=== PATIENT | male | born 1995 | race Caucasian/White ===

== ENCOUNTER 2016-07-26 22:15 | Emergency (ER) | payer MEDICAID ==
[2016-07-26] MEDS ORDERED: ceFAZolin 1 GM VIAL IM STA (22:36)
[2016-07-26] MEDS ORDERED: ceFAZolin 1 GM VIAL ONE (22:38)
[2016-07-26] MEDS ORDERED: WATER FOR INJECTION,STERILE 10 ML ONE (22:40)
[2016-07-26] MEDS ORDERED: TETANUS/DIPHTHERIA/PERTUSSIS 0.5 ML SYRINGE IM ONE ×2 (23:07→23:08)
== END 2016-07-26 23:17 | disposition home or self-care (01) ==
DX: L03.113 Cellulitis of right upper limb (principal); L40.9 Psoriasis, unspecified; R03.0 Elevated blood-pressure reading, without diagnosis of hypertension; Z23 Encounter for immunization

== ENCOUNTER 2017-03-07 10:40 | Emergency (ER) | payer MEDICAID ==
[2017-03-07 12:07] VITALS: BP 117/69
[2017-03-07] MEDS ORDERED: DEXAMETHASONE 10 MG/ML VIAL PO STA (12:47)
--- NOTE | 2017-03-07 12:48 | ED Physician Documentation ---
PD HPI URI - Stated complaint Stated Complaint: COLD LIKE SYMPTOMS - Chief complaint Chief Complaint: Resp - History obtained from History obtained from: Patient - History of Present Illness Timing - onset: How many days ago (5) Timing duration: Days (5) Timing details: Gradual onset Pain level max: 3 Pain level now: 2 Associated symptoms: Nasal congestion, Rhinorrhea, Sinus pain, Sore throat (mild ), Dry cough (mild), Other (states nasal mucus had some blood in it today.). No : Fever, Chills, Sweats, Ear pain, Swollen nodes, Productive cough Contributing factors: Sick contact (daughter sick with same) Improves by: Rest Worsened by: Activity, Breathing Recently seen: Not recently seen - Additional information Additional information: Patient is a 22-year-old male who presents to the emergency department with nasal congestion and dry cough for the past several days. States the nasal mucus has turned bloody recently. Small amount of bleeding. Had his tonsils removed last year and is concerned that he may have a recurrent tonsillar abscess. No difficulty swallowing. Review of Systems Ten Systems: 10 systems reviewed and negative Constitutional: denies: Fever, Chills Cardiac: denies: Chest pain / pressure Respiratory: denies: Dyspnea, Cough GI: denies: Abdominal Pain, Nausea, Vomiting, Diarrhea Skin: denies: Rash Musculoskeletal: denies: Neck pain, Back pain Neurologic: denies: Focal weakness, Numbness, Headache PD PAST MEDICAL HISTORY - Past Medical History Past Medical History: No - Past Surgical History Past Surgical History: No - Present Medications Home Medications: Ambulatory Orders Medication Instructions Recorded Confirmed Cetirizine HCl/Pseudoephedrine 1 each PO BID PRN #30 tab.er.12h 03/07/17 [Zyrtec-D Tablet] - Allergies Allergies/Adverse Reactions: Allergies Allergy/AdvReac Type Severity Reaction Status Date / Time No Known Drug Allergies Allergy Verified 03/07/17 10:51 - Social History Does the pt smoke?: No Smoking Status: Never smoker Does the pt drink ETOH?: No Does the pt have substance abuse?: No - Immunizations Immunizations are current?: Yes - POLST Patient has POLST: No PD ED PE NORMAL - Vitals Vital signs reviewed: Yes - General General: Alert and oriented X 3, No acute distress, Well developed/nourished - HEENT HEENT: PERRL, EOMI, Ears normal, Moist mucous membranes, Pharynx benign - Neck Neck: Supple, no meningeal sign, No adenopathy - Cardiac Cardiac: RRR, Strong equal pulses - Respiratory Respiratory: No respiratory distress, Clear bilaterally - Abdomen Abdomen: Soft, Non tender, Non distended - Derm Derm: Warm and dry, No rash - Neuro Neuro: Alert and oriented X 3 - Psych Psych: Normal mood, Normal affect Results - Vitals Vitals: Vital Signs - 24 hr 03/07/17 03/07/17 10:49 12:07 Temperature 36.3 C L 36.5 C Heart Rate 84 73 Respiratory 16 18 Rate Blood Pressure 138/88 H 117/69 O2 Saturation 98 97 Oxygen O2 Source Room air PD MEDICAL DECISION MAKING - ED course Complexity details: considered differential, d/w patient ED course: Patient is a 22-year-old male who presents to the emergency department what appears to be a viral upper respiratory infection. No sinus tenderness on examination. No fevers. No evidence of bacterial infection. Pharynx is benign. No lymphadenopathy. We will continue supportive care and follow-up with his doctor. Patient counseled regarding signs and symptoms for which I believe and urgent re-evaluation would be necessary. Patient with good understanding of and agreement to plan and is comfortable going home at this time This document was made in part using voice recognition software. While efforts are made to proofread this document, sound alike and grammatical errors may occur. Departure - Departure Disposition: 01 Home, Self Care Clinical Impression: Viral URI Condition: Good Instructions: ED URI Viral Follow-Up: your,doctor in 1 week [Other] Prescriptions: Cetirizine HCl/Pseudoephedrine [Zyrtec-D Tablet] 1 each PO BID PRN #30 tab.er.12h PRN Reason: Nasal Congestion Comments: Return if you worsen. This should improve over the next week or so.
[2017-03-07] MEDS ORDERED: DEXAMETHASONE 10 MG/ML VIAL ONE (12:59)
[2017-03-07] MEDS ORDERED: CHERRY SYRUP 10 ML UDC PO ONE (12:59)
== END 2017-03-07 12:57 | disposition home or self-care (01) ==
LOC: ED 10:40
DX: J06.9 Acute upper respiratory infection, unspecified (principal); B34.9 Viral infection, unspecified
CPT/HCPCS: 99283; A9270

== ENCOUNTER 2017-08-17 08:00 | Outpatient (CLI) | payer MEDICAID | END 2017-08-17 08:01 | disposition home or self-care (01) | LOC: LAB.R 08:00 | PROVIDERS: ATTEND Physician Assistant Medical | DX: Z00.00 Encounter for general adult medical examination without abnormal findings (principal); Z91.89 Other specified personal risk factors, not elsewhere classified | CPT/HCPCS: 87491; 87591 ==

== ENCOUNTER 2017-08-17 08:00 | Outpatient (CLI) | payer MEDICAID ==
[2017-08-18 08:55] LABS: HEPATITIS C ANTIBODY NON-REACTIVE (NON-REACTIVE)
[2017-08-18 14:42] LABS: HIV AG/AB 4TH GEN NON-REACTIVE (NON-REACTIVE)
== END 2017-08-17 08:01 | disposition home or self-care (01) ==
LOC: LAB.WCP 08:00
PROVIDERS: ATTEND Physician Assistant Medical
DX: Z00.00 Encounter for general adult medical examination without abnormal findings (principal); Z91.89 Other specified personal risk factors, not elsewhere classified
CPT/HCPCS: 36415; 81599; 86592; 86803; 87389; 87491; 87591

== ENCOUNTER 2017-11-15 08:00 | Outpatient (CLI) | payer MEDICAID ==
[2017-11-17 12:01] LABS: HSV 2 IGG TYPE SPECIFIC AB <0.90 index
== END 2017-11-15 08:01 | disposition home or self-care (01) ==
LOC: LAB.N 08:00
PROVIDERS: ATTEND Nurse Practitioner
DX: B00.1 Herpesviral vesicular dermatitis (principal)
CPT/HCPCS: 36415; 86695; 86696

== ENCOUNTER 2017-11-17 17:22 | Emergency (ER) | payer MEDICAID ==
[2017-11-17 17:38] VITALS: BP 140/87
[2017-11-17] MEDS ORDERED: HYDROcod/ACETAM 5/325 MG TABLET PO STA (18:14)
[2017-11-17] MEDS ORDERED: BUFFERED LIDOCAINE 10 ML SYRINGE SUBQ STA (18:14)
[2017-11-17] MEDS ORDERED: AMOX/CLAV 875 MG/125 MG TABLET PO STA (18:14)
--- NOTE | 2017-11-17 18:16 | ED Physician Documentation ---
PD HPI SKIN - Stated complaint Stated Complaint: LIP SWOLLEN - Chief complaint Chief Complaint: Wound - History obtained from History obtained from: Patient - History of Present Illness Timing - onset: Other (He has had several days of a painful swelling to the right upper lip, with some aches and chills as well. He saw his physician and was presumed to be herpetic I guess because they put him on meloxicam and valacyclovir without improvement.) Review of Systems Constitutional: reports: Chills, Fatigue. denies: Fever Nose: denies: Rhinorrhea / runny nose, Congestion Cardiac: denies: Palpitations PD PAST MEDICAL HISTORY - Past Surgical History Past Surgical History: No - Present Medications Home Medications: Ambulatory Orders Medication Instructions Recorded Confirmed Amox/Clav 875/125 [Augmentin] 1 each PO Q12H #14 tablet 11/17/17 HYDROcod/ACETAM 5/325 [[place] 5/325] 1 - 2 ea PO Q6H PRN #15 tablet 11/17/17 Meloxicam 7.5 mg PO 11/17/17 - Allergies Allergies/Adverse Reactions: Allergies Allergy/AdvReac Type Severity Reaction Status Date / Time No Known Drug Allergies Allergy Verified 11/17/17 17:38 - Social History Does the pt smoke?: No Smoking Status: Never smoker Does the pt drink ETOH?: No Does the pt have substance abuse?: No - Immunizations Immunizations are current?: Yes - POLST Patient has POLST: No PD ED PE NORMAL - Vitals Vital signs reviewed: Yes - General General: Alert and oriented X 3, No acute distress - HEENT HEENT: Other (He has a tender swollen upper lip on the right side with pointing consistent with an abscess.) - Neck Neck: Supple, no meningeal sign, No bony TTP - Neuro Neuro: Alert and oriented X 3, Normal speech Results - Vitals Vitals: Vital Signs - 24 hr 11/17/17 17:35 Temperature 37.5 C Heart Rate 88 Respiratory 16 Rate Blood Pressure 140/87 H O2 Saturation 98 Oxygen O2 Source Room air Procedures - Abscess I&D (location) Lip Preparation: Betadine, Lidocaine 1% (inf orbital nerve block) Incision: Incised with scalpel, Purulent drainage, Loculations broken, Packed ( with 1/4 inch packing), Culture obtained Other: Pt tolerated well, Dressing applied, Antibiotic prescribed PD MEDICAL DECISION MAKING - Sepsis Event Vital Signs: Vital Signs - 24 hr 11/17/17 17:35 Temperature 37.5 C Heart Rate 88 Respiratory 16 Rate Blood Pressure 140/87 H O2 Saturation 98 Oxygen O2 Source Room air Departure - Departure Disposition: 01 Home, Self Care Clinical Impression: Abscess Condition: Good Record reviewed to determine appropriate education?: Yes Instructions: ED Abscess IandD Prescriptions: Amox/Clav 875/125 [Augmentin] 1 each PO Q12H #14 tablet HYDROcod/ACETAM 5/325 [[place] 5/325] 1 - 2 ea PO Q6H PRN #15 tablet PRN Reason: Pain Comments: Take the packing out tomorrow, follow-up with your doctor on Tuesday for a wound check. We are performing a wound culture, the results should be done in 48-72 hours. If antibiotic change is necessary we will call you. Return if worse in the meantime, especially if you develop increased pain, fevers, cannot keep down the medication. Otherwise follow-up with your physician in approximately 2-3 days.
== END 2017-11-17 19:37 | disposition home or self-care (01) ==
LOC: ED 17:22
DX: K13.0 Diseases of lips (principal)
CPT/HCPCS: 10060; 87070; 87181; 87205; 99283; A9270

== ENCOUNTER 2018-08-28 22:27 | Outpatient (CLI) | payer MEDICAID ==
--- NOTE | 2018-08-28 23:49 | Ultrasound Report ---
Reason: TESTICULAR PAIN,LEFT Procedure Date: 08/28/2018 Accession Number: [id number] / [id number] Procedure: US - Testicle w/Doppler CPT Code: FULL RESULT: EXAM: SCROTAL ULTRASOUND EXAM DATE: 08/28/2018 11:00 PM. CLINICAL HISTORY: TESTICULAR PAIN,LEFT. COMPARISON: None. TECHNIQUE: Real-time scanning was performed with static images obtained. Color-flow images were utilized. FINDINGS: Right: Testis: 4.0 x 2.3 x 1.9 cm. Normal size and echotexture. No mass, calcification, or abnormal blood flow. Epididymis: 1.7 x 1.2 x 1.1 cm. Normal size and echotexture. No mass or abnormal blood flow. Hydrocele: Trace Varicocele: None. Left: Testis: 3.5 x 2.8 x 1.9 cm. Normal size and echotexture. No mass, calcification, or abnormal blood flow. Epididymis: 1.3 x 0.9 x 0.8 cm. Incidental 6 mm epididymal cyst. No solid lesion or abnormal blood flow. Hydrocele: Trace Varicocele: None. IMPRESSION: Incidental left epididymal cyst. No evidence of torsion or testicular lesion. RADIA
== END 2018-08-28 22:28 | disposition home or self-care (01) ==
LOC: DI 22:27
PROVIDERS: ATTEND Physician Assistant Medical
DX: N50.812 Left testicular pain (principal); N50.3 Cyst of epididymis
CPT/HCPCS: 76870; 93975

== ENCOUNTER 2019-08-28 21:21 | Emergency (ER) | payer MEDICAID ==
--- NOTE | 2019-08-28 21:40 | ED Physician Documentation ---
History of Present Illness - Stated complaint Stated Complaint: SWOLLEN RIGHT JAW/PX - Chief complaint Chief Complaint: Wound - Additonal information Additional information: This is a 24-year-old male with a history of past abscess who presents with swelling on his right cheek. Several days ago patient began developing a little bit of a red spot on his right cheek, he saw primary care provider who prescribed him Bactrim but despite taking the Bactrim it is continued to be swollen and painful. He feels the overal size of the swelling has been fairly stable over the last day but it is definitely not improving. No measured fever, he endorses chills. When he opens his mouth he does have increased pain on the cheek. He denies any pain with range of motion of his neck. He has been taking the Bactrim as prescribed. He denies any trauma to the area, this apparently began out of the blue. Review of Systems Constitutional: denies: Fever Cardiac: denies: Chest pain / pressure GI: denies: Vomiting Skin: reports: Rash Immunocompromised: denies: Immunocompromised PD PAST MEDICAL HISTORY - Past Medical History Past Medical History: No - Past Surgical History Past Surgical History: No - Present Medications Home Medications: Ambulatory Orders Medication Instructions Recorded Confirmed Amox/Clav 875/125 [Augmentin] 1 each PO Q12H #14 tablet 11/17/17 HYDROcod/ACETAM 5/325 [[place] 5/325] 1 - 2 ea PO Q6H PRN #15 tablet 11/17/17 Meloxicam 7.5 mg PO 11/17/17 Sulfamethox/Trimeth 800/160 1 each PO BID 2 Days #4 tablet 08/28/19 [Bactrim Ds 800/160] cephALEXin [Cephalexin] 500 mg PO QID 7 Days #28 tablet 08/28/19 - Allergies Allergies/Adverse Reactions: Allergies Allergy/AdvReac Type Severity Reaction Status Date / Time No Known Drug Allergies Allergy Verified 08/28/19 21:28 - Social History Does the pt smoke?: No Smoking Status: Never smoker Does the pt drink ETOH?: No Does the pt have substance abuse?: No - Immunizations Immunizations are current?: Yes - POLST Patient has POLST: No PD ED PE NORMAL - Vitals Vital signs reviewed: Yes - General General: Alert and oriented X 3, No acute distress - HEENT HEENT: Other (Over the right cheek there is a 3 cm x 3cm fluctuance and edema, and erythema. There is mild induration about 1 cm circumferentially around the area of fluctuance. There are no lesions in the internal mucosa, no open wounds on the external cheek. Patient has normal range of motion of his jaw without trismus, no tenderness of the neck, normal range of motion of the neck.) - Neck Neck: Supple, no meningeal sign - Cardiac Cardiac: RRR, No murmur - Respiratory Respiratory: Clear bilaterally - Abdomen Abdomen: Non distended, Other (There is a left inguinal hernia which is reducible, and without significant tenderness.) - Neuro Neuro: Alert and oriented X 3 - Psych Psych: Normal mood, Normal affect Results - Vitals Vitals: Vital Signs - 24 hr 08/28/19 08/28/19 21:24 23:37 Temperature 36.9 C 36.7 C Heart Rate 87 86 Respiratory 16 16 Rate Blood Pressure 139/79 H 130/80 O2 Saturation 98 98 Oxygen O2 Source Room air Procedures - Abscess I&D (location) R cheek Preparation: Confirmed with ultrasound, Alcohol, Lidocaine 1%, With epi Incision: Incised with scalpel, Purulent drainage, Loculations broken Other: Pt tolerated well, Dressing applied, Antibiotic prescribed PD MEDICAL DECISION MAKING - ED course Complexity details: considered differential (Abscess, cellulitis, infected cyst) ED course: Patient is nontoxic on arrival, vital signs are unremarkable. He has a localized area of fluctuance over his cheek, with ultrasound there is a confirmed abscess pocket. After discussing with the patient the options for treatment including aspiration, incision and drainage, we elected to do an incision and drainage with a small incision, with the understanding that a small incision may increase the rate of recurrence, but It will have a better cos metic outcome for him. After the area was anesthestized a stab incision with an 11 blade was performed and there was fairly copious return of purulent drainage. Loculations were broken and all purulent drainage was expressed. Patient was given a dose of Ativan for the procedure as last time he had an incision and drain hinged he had significant distress/anxiety with the procedure. Today he tolerated the procedure quite well. I reviewed wound care, including warm compresses and bacitracin over the area, potential need for repeat incision and drainage, and prescribed him a course of Keflex to be added to week of Bactrim. He has no signs of more serious or deeper infection at this time, appears to have a localized abscess of his cheek. As a secondary issue part-way through the visit patient noted that he had a reducible left inguinal bulge for several weeks, he saw his primary care provider who referred him to a general surgeon for outpatient hernia repair. He has intermittent discomfort with the bulge, which is more prominent with straining. This is a reducible hernia with no signs of entrapment or incarceration today, I agree with the plan of his primary care provider for outp atient referral for general surgery. I did review the signs of incarceration and strangulation with the patient, I also reviewed avoiding heavy straining that would potentially worsen the hernia. Patient agrees with this plan and was discharged home in good condition. Departure - Departure Disposition: 01 Home, Self Care Clinical Impression: Abscess Condition: Good Instructions: ED Abscess IandD Follow-Up: Sebastián Baker PA-C [Primary Care Provider] - (With any residual symptoms) Prescriptions: cephALEXin [Cephalexin] 500 mg PO QID 7 Days #28 tablet Sulfamethox/Trimeth 800/160 [Bactrim Ds 800/160] 1 each PO BID 2 Days #4 tablet Comments: We have drained the abscess on your cheek. Please keep a thin layer of antibiotic ointment over the incision, and use warm compresses on it. You may apply gentle pressure to assist with any further drainage, but do not pick at the wound. If you are developing increasing swelling, fever, difficulty swallowing, difficulty breathing, or any other concerning symptoms, return to the emergency department. Please take the full 7-day course of both antibiotics: Bactrim (I am prescribing an additional 2 days on top of the 5 days of pills you have already) and Keflex. It is okay to use Tylenol and ibuprofen for pain, you may use 650 mg of Tylenol and 600 mg of ibuprofen every 6 hours as needed Discharge Date/Time: 08/28/19 23:37
[2019-08-28] MEDS ORDERED: LIDOCAINE 1%-EPI 1:100000 20 ML MDV SUBQ STA (21:41)
[2019-08-28] MEDS ORDERED: LORazepam 1 MG TABLET PO STA (23:00)
[2019-08-28] MEDS ORDERED: BACITRACIN ZINC OINT 1 PACKET TOP STA (23:31)
[2019-08-28 23:38] VITALS: BP 130/80
== END 2019-08-28 23:37 | disposition home or self-care (01) ==
LOC: ED 21:21
DX: L02.01 Cutaneous abscess of face (principal); K40.90 Unilateral inguinal hernia, without obstruction or gangrene, not specified as recurrent
CPT/HCPCS: 10060; 99283; 99284; A9270; J8499

== ENCOUNTER 2019-09-05 08:00 | Outpatient (CLI) | payer MEDICAID | END 2019-09-05 23:59 | disposition home or self-care (01) | LOC: LAB.R 08:00 | PROVIDERS: ATTEND Surgery | DX: Z22.322 Carrier or suspected carrier of Methicillin resistant Staphylococcus aureus (principal) | CPT/HCPCS: 87640 ==

== ENCOUNTER 2019-09-20 13:53 | Emergency (ER) | payer MEDICAID ==
[2019-09-20 14:04] VITALS: BP 116/71
--- NOTE | 2019-09-20 14:47 | ED Physician Documentation ---
PD HPI ABD PAIN - Stated complaint Stated Complaint: HERNIA PX - Chief complaint Chief Complaint: Abd Pain - History obtained from History obtained from: Patient - History of Present Illness Timing - onset: Other (Recent diagnosis of left inguinal hernia, continues to bother him more and more as time progresses. He is already seen a surgeon but has not been scheduled for surgery yet. Of note he also had a recent abscess on the right cheek and still has a lump there. It is not painful.) Review of Systems Constitutional: denies: Fever, Myalgias Nose: denies: Rhinorrhea / runny nose, Congestion Throat: denies: Sore throat Cardiac: denies: Chest pain / pressure, Palpitations PD PAST MEDICAL HISTORY - Past Surgical History Past Surgical History: No - Present Medications Home Medications: Ambulatory Orders Medication Instructions Recorded Confirmed Amox/Clav 875/125 [Augmentin] 1 each PO Q12H #14 tablet 11/17/17 HYDROcod/ACETAM 5/325 [[place] 5/325] 1 - 2 ea PO Q6H PRN #15 tablet 11/17/17 Meloxicam 7.5 mg PO 11/17/17 Sulfamethox/Trimeth 800/160 1 each PO BID 2 Days #4 tablet 08/28/19 [Bactrim Ds 800/160] cephALEXin [Cephalexin] 500 mg PO QID 7 Days #28 tablet 08/28/19 Hydrocodone/Acetaminophen 1 - 2 each PO Q6H PRN #14 tablet 09/20/19 [Hydrocodon-Acetaminophen 5-325] - Allergies Allergies/Adverse Reactions: Allergies Allergy/AdvReac Type Severity Reaction Status Date / Time No Known Drug Allergies Allergy Verified 09/20/19 14:01 - Social History Does the pt smoke?: No Smoking Status: Never smoker Does the pt drink ETOH?: No Does the pt have substance abuse?: No - Immunizations Immunizations are current?: Yes - POLST Patient has POLST: No PD ED PE NORMAL - Vitals Vital signs reviewed: Yes - General General: Alert and oriented X 3, No acute distress - HEENT HEENT: Other (small sebaceous cyst w/o infection) - Abdomen Abdomen: Non tender - Male Male : Other (He has an easily reducible small nontender left inguinal hernia) - Neuro Neuro: Alert and oriented X 3, Normal speech Results - Vitals Vitals: Vital Signs - 24 hr 09/20/19 14:01 Temperature 36.5 C Heart Rate 78 Respiratory 14 Rate Blood Pressure 116/71 O2 Saturation 98 Oxygen O2 Source Room air PD MEDICAL DECISION MAKING - ED course ED course: I sent an email to the surgeon that saw him, Dr. Sánchez to hopefully get him on the schedule sooner rather than later as elective surgeries reopen could also be incised at the same time. We discussed limitation in lifting etc. Departure - Departure Disposition: Home, Self Care Clinical Impression: Hernia Condition: Good Record reviewed to determine appropriate education?: Yes Instructions: ED Hernia Inguinal Prescriptions: Hydrocodone/Acetaminophen [Hydrocodon-Acetaminophen 5-325] 1 - 2 each PO Q6H PRN #14 tablet PRN Reason: pain Comments: I sent an email to your surgeon, who they can get you on the schedule soon, potentially may be take care of the cyst on your face as well. Return for new or worsening symptoms. Discharge Date/Time: 09/20/19 14:57
== END 2019-09-20 14:57 | disposition home or self-care (01) ==
LOC: ED 13:53
DX: K40.90 Unilateral inguinal hernia, without obstruction or gangrene, not specified as recurrent (principal); L72.3 Sebaceous cyst
CPT/HCPCS: 99282; 99283

== ENCOUNTER 2019-10-12 11:44 | Outpatient (CLI) | payer MEDICAID | END 2019-10-12 11:45 | disposition home or self-care (01) | LOC: LAB 11:44 | PROVIDERS: ATTEND Surgery | DX: Z01.812 Encounter for preprocedural laboratory examination (principal); K40.90 Unilateral inguinal hernia, without obstruction or gangrene, not specified as recurrent; Z20.828 Contact with and (suspected) exposure to other viral communicable diseases | CPT/HCPCS: 81599 ==

== ENCOUNTER 2019-10-16 08:24 | Day surgery (SDC) | payer MEDICAID ==
[2019-10-16] MEDS ORDERED: LACTATED RINGERS 1,000 ML IV ONE ×2 (08:35→12:11)
[2019-10-16] MEDS ORDERED: CLINDAMYCIN IV 900 MG/50 ML IV ONE (09:00)
--- NOTE | 2019-10-16 09:02 | ANESTHESIA ---
Pre-Anesthesia VS, & Labs - Diagnosis left inguinal hernia - Procedure open left inguinal hernia repair Vital Signs: Temp Pulse Resp BP Pulse Ox 36 C L 79 12 125/70 100 10/16/19 08:35 10/16/19 08:35 10/16/19 08:35 10/16/19 08:35 10/16/19 08:35 Height 5 ft 10 in Weight (kg) 73 kg Body Mass Index 22.6 - NPO >8 hours Home Medications and Allergies Active Medications Clindamycin Phosphate (Cleocin 900 Mg/50 Ml) 50 mls @ 50 mls/hr IV ONCE ONE Stop: 10/16/19 09:59 Allergies/Adverse Reactions: Allergies Allergy/AdvReac Type Severity Reaction Status Date / Time No Known Drug Allergies Allergy Verified 09/20/19 14:01 Anes History & Medical History - Anesthetic History Anesthesia Complications: reports: No previous complications, Other-see comment (not sure but reports that during his wisdom teeth removal, " had a little but of a seizure" but he is not sure. denies any other complications. and that was when he was 14. He denies any problems since then.) Family history of Anesthesia Complications: Denies Family history of Malignant Hyperthermia: Denies - Medical History Cardiovascular: reports: None Pulmonary: reports: None Gastrointestinal: reports: None, Other Urinary: reports: None Neuro: reports: None Musculoskeletal: reports: None Endocrine/Autoimmune: reports: None Blood Disorders: reports: None Skin: reports: Eczema, Psoriasis Smoking Status: Current every day smoker (3 cigarattes a day. on and off for a year or two) Psychosocial: reports: Anxiety - Surgical History Eyes Ears Nose Throat (EENT): Tonsil/Adenoidectomy, Other Exam General: Alert, Oriented x3, Cooperative, No acute distress Dental: WNL Mouth Openin Fingerbreadth Neck Mobility: Normal Mallampati classification: I Thyromental Distance: 4-6 cm Respiratory: Lungs clear, Normal breath sounds, No respiratory distress, No accessory muscle use Cardiovascular: Regular rate, Normal S1, Normal S2, No murmurs Abdomen: Normal bowel sounds, Soft, No tenderness, No hepatospenomegaly, No masses Extremities: No clubbing, No cyanosis, No edema, Normal pulses, No tenderness/swelling Neurological: Normal gait, Normal speech, Strength at 5/5 X4 ext, Normal tone, Sensation intact, Cranial nerves 3-12 NL, Reflexes 2+ Mental/Cognitive Status: Alert/Oriented X3, Normal for patient Cognitive Status: Within normal limits Plan Anesthesia Type: MAC Consent for Procedure(s) Verified and Reviewed: Yes Code Status: Attempt Resuscitation ASA classification: 2-Mild systemic disease Is this case an emergency?: No
[2019-10-16] MEDS ORDERED: BUPIVACAINE 0.25% PF 30 ML VIAL SUBQ ONE ×2 (10:16)
[2019-10-16] MEDS ORDERED: BUPIVACAINE 0.25% PF 30 ML VIAL ONE ×2 (10:20→10:53)
[2019-10-16] MEDS ORDERED: DEXAMETHASONE 4 MG/ML VIAL IVP ONE (10:36)
[2019-10-16] MEDS ORDERED: KETAMINE 500 MG/10 ML VIAL IVP ONE (10:36)
[2019-10-16] MEDS ORDERED: MIDAZOLAM 2 MG/2 ML VIAL IVP ONE (10:36)
[2019-10-16] MEDS ORDERED: PROPOFOL 200 MG/20 ML VIAL IVP ONE (10:36)
[2019-10-16] MEDS ORDERED: ONDANSETRON 4 MG/2 ML VIAL IVP ONE (10:36)
[2019-10-16] MEDS ORDERED: fentaNYL 100 MCG/2 ML VIAL IVP ONE (10:36)
[2019-10-16] MEDS ORDERED: PHENYLEPHRINE 10 MG/ML VIAL IV ONE (10:36)
[2019-10-16] MEDS ORDERED: LIDOCAINE 1% 50 ML MDV SUBQ ONE ×2 (11:08)
[2019-10-16] MEDS ORDERED: HYDROcod/ACETAM 5/325 MG TABLET ONE (13:27)
[2019-10-16 13:34] VITALS: BP 130/73
== END 2019-10-16 08:25 | disposition home or self-care (01) ==
LOC: SDS 08:24
PROVIDERS: ATTEND Surgery
DX: K40.90 Unilateral inguinal hernia, without obstruction or gangrene, not specified as recurrent (principal); F17.210 Nicotine dependence, cigarettes, uncomplicated
CPT/HCPCS: 49505; A9270; C1781; J7120

== ENCOUNTER 2020-01-24 13:56 | Emergency (ER) | payer MEDICAID ==
[2020-01-24 15:22] LABS: BASOPHILS # (AUTO) 0.1 10^3/uL (0.0-0.1); BASOPHILS % (AUTO) 0.7 %; EOSINOPHILS # (AUTO) 0.3 10^3/uL (0.0-0.7); HGB - HEMOGLOBIN 16.5 g/dL (14.0-18.0); LYMPHOCYTES # (AUTO) 1.6 10^3/uL (1.5-3.5); LYMPHOCYTES % (AUTO) 18.9 %; MEAN CORPUSCULAR HEMOGLOBIN 28.8 pg (27.0-31.0); MEAN CORPUSCULAR HGB CONC 34.6 g/dL (32.0-36.0); MEAN CORPUSCULAR VOLUME 83.4 fL (80.0-94.0); MEAN PLATELET VOLUME 10.5 fL (7.4-11.4); MONOCYTES # (AUTO) 0.6 10^3/uL (0.0-1.0); MONOCYTES % (AUTO) 7.6 %; NEUTROPHILS # (AUTO) 5.8 10^3/uL (1.5-6.6); NEUTROPHILS % (AUTO) 69.4 %; PLT - PLATELET COUNT 170 10^3/uL (130-450); RED BLOOD COUNT 5.72 10^6/uL (4.70-6.10); RED CELL DISTRIBUTION WIDTH 12.5 % (12.0-15.0); WHITE BLOOD COUNT 8.4 x10^3/uL (4.8-10.8)
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
[2020-01-24 15:32] LABS: CALCIUM 9.8 mg/dL (8.5-10.3); CREATININE 0.9 mg/dL (0.6-1.2)
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
[2020-01-24] MEDS ORDERED: IOVERSOL 320 100 ML VIAL IVP ONE (17:34)
[2020-01-24 17:55] VITALS: BP 137/67
== END 2020-01-24 17:54 | disposition home or self-care (01) ==
LOC: ED 13:56
DX: T71.193A Asphyxiation due to mechanical threat to breathing due to other causes, assault, initial encounter (principal); Y04.0XXA Assault by unarmed brawl or fight, initial encounter; Y93.83 Activity, rough housing and horseplay; F17.210 Nicotine dependence, cigarettes, uncomplicated
CPT/HCPCS: 36415; 70450; 70498; 80048; 85025; 99282; 99284

== ENCOUNTER 2020-07-20 18:32 | Outpatient (CLI) | payer MEDICAID ==
--- NOTE | 2020-07-21 09:17 | Ultrasound Report ---
PROCEDURE: Testicle INDICATIONS: ACUTE PELVIC PAIN, LEFT TESTICULAR PAIN TECHNIQUE: Real-time scanning was performed of the scrotum and testicles, with image documentation. Color and p ulse Doppler interrogation was performed of both testicles. COMPARISON: Groin ultrasound also performed today. Scrotal ultrasound 08/28/2018. FINDINGS: Right: Testicle is normal in size at 4.1 x 2.6 x 1.6 cm, and homogenous in echotexture. Epididymis is normal in overall size and morphology. Trace hydrocele. No varicoceles. Overlying scrotal skin is normal in thickness. Left: Testicle is normal in size at 3.5 x 2.8 x 1.8 cm, and homogeneous in echotexture. Epididymis is normal in overall size and morphology. Small epididymal head cyst measuring 0.7 cm, similar the pr ior exam. No hydrocele or varicoceles. Overlying scrotal skin is normal in thickness. Doppler: Color and pulse Doppler demonstrate normal and symmetric arterial flow in both testicles. IMPRESSION: 1. No source for pain is identified. 2. Blood flow in the testes appears normal and is symmetric. 3. Trace right hydrocele. 4. Small benign left epididymal head cyst. Reviewed by: Luis Jauregui MD on 07/21/2020 8:16 AM WILIAN Approved by: Luis Jauregui MD on 07/21/2020 8:16 AM WILIAN Station ID: [id number]
--- NOTE | 2020-07-21 09:26 | Ultrasound Report ---
PROCEDURE: Pelvic Limited or F/U INDICATIONS: ACUTE PELVIC PAIN, LEFT TESTICULAR PAIN TECHNIQUE: Real-time transabdominal scanning was performed of the left humeral canal with compression and Valsal va, with image documentation. COMPARISON: Same day testicular ultrasound. FINDINGS: At the site of clinical concern at the left inguinal canal near the prior hernia repair, there is a s mall area of curvilinear hypoechogenicity slightly lateral to the prior inguinal hernia scar. This al so appears to be lateral to the small artery and vein which are presumably the inferior epigastric ar vickie and vein. This measures approximately 0.3 cm in width. With Valsalva there is no enlargement. Th e area is noncompressible. No fluid collection. No enlarged lymph nodes seen. IMPRESSION: In the area of pain in the left inguinal canal near the prior hernia site laterally, there is a small hypoechoic area. This could represent scar tissue versus small nonreducible fat-containing hernia. N o significant enlargement with Valsalva. Reviewed by: Luis Jauregui MD on 07/21/2020 8:25 AM WILIAN Approved by: Luis Jauregui MD on 07/21/2020 8:25 AM WILIAN Station ID: [id number]
== END 2020-07-20 18:33 | disposition home or self-care (01) ==
LOC: DI 18:32
PROVIDERS: ATTEND Physician Assistant
DX: N43.3 Hydrocele, unspecified (principal); N50.3 Cyst of epididymis; R93.5 Abnormal findings on diagnostic imaging of other abdominal regions, including retroperitoneum

== ENCOUNTER 2020-08-18 08:00 | Outpatient (CLI) | payer MEDICAID | END 2020-08-18 23:59 | disposition home or self-care (01) | LOC: LAB.R 08:00 | PROVIDERS: ATTEND Physician Assistant | DX: L08.9 Local infection of the skin and subcutaneous tissue, unspecified (principal) | CPT/HCPCS: 87070; 87205 ==

== ENCOUNTER 2020-10-25 01:01 | Outpatient (CLI) | payer MEDICAID | END 2020-10-25 01:02 | disposition home or self-care (01) | LOC: EMS 01:01 | DX: S89.91XA Unspecified injury of right lower leg, initial encounter (principal); V89.2XXA Person injured in unspecified motor-vehicle accident, traffic, initial encounter; Y93.89 Activity, other specified; Y92.410 Unspecified street and highway as the place of occurrence of the external cause | CPT/HCPCS: A0425; A0427; A0999 ==

== ENCOUNTER 2020-10-25 01:25 | Emergency (ER) | payer MEDICAID ==
[2020-10-25] MEDS ORDERED: SODIUM CHLORIDE 0.9% 1,000 ML IV STA (01:42)
[2020-10-25] MEDS ORDERED: MORPHINE 10 MG/ML VIAL IVP STA (01:42)
[2020-10-25] MEDS ORDERED: TETANUS/DIPHTHERIA/PERTUSSIS 0.5 ML SYRINGE IM ONE (01:44)
[2020-10-25] MEDS ORDERED: AMPICILLIN/SULBACTAM 1.5 GM in SODIUM CHLORIDE 0.9% MINIBAG 100 ML IV STA (01:44)
[2020-10-25 02:06] LABS: BASOPHILS # (AUTO) 0.1 10^3/uL (0.0-0.1); BASOPHILS % (AUTO) 0.7 %; EOSINOPHILS # (AUTO) 0.3 10^3/uL (0.0-0.7); EOSINOPHILS % (AUTO) 2.8 %; HCT - HEMATOCRIT 49.1 % (42.0-52.0); HGB - HEMOGLOBIN 16.3 g/dL (14.0-18.0); LYMPHOCYTES % (AUTO) 17.4 %; MEAN CORPUSCULAR HEMOGLOBIN 28.2 pg (27.0-31.0); MEAN CORPUSCULAR HGB CONC 33.2 g/dL (32.0-36.0); MEAN CORPUSCULAR VOLUME 84.9 fL (80.0-94.0); MEAN PLATELET VOLUME 11.2 fL (7.4-11.4); MONOCYTES # (AUTO) 0.6 10^3/uL (0.0-1.0); MONOCYTES % (AUTO) 4.9 %; NEUTROPHILS # (AUTO) 8.3 10^3/uL (1.5-6.6); NEUTROPHILS % (AUTO) 73.7 %; PLT - PLATELET COUNT 198 10^3/uL (130-450); RED BLOOD COUNT 5.78 10^6/uL (4.70-6.10); RED CELL DISTRIBUTION WIDTH 13.7 % (12.0-15.0); WHITE BLOOD COUNT 11.2 x10^3/uL (4.8-10.8)
[2020-10-25 02:14] LABS: INR 1.1 (0.8-1.2); PT - PROTHROMBIN TIME 11.8 secs (9.9-12.6)
[2020-10-25 02:19] LABS: ALBUMIN/GLOBULIN RATIO 1.5 (1.0-2.2); CALCIUM 9.5 mg/dL (8.5-10.3); CREATININE 0.8 mg/dL (0.6-1.2); ETOH - ETHANOL 135.1 mg/dL; POTASSIUM 3.6 mmol/L (3.5-5.0); TOTAL PROTEIN 8.4 g/dL (6.7-8.2)
[2020-10-25 02:21] LABS: PARTIAL THROMBOPLASTIN TIME 26.1 secs (24.9-33.3)
[2020-10-25] MEDS ORDERED: IOVERSOL 320 100 ML VIAL IVP ONE ×2 (02:26→05:07)
[2020-10-25 02:44] LABS: MUDS CUTOFF CONCENTRATIONS CUTOFF CONC BELOW:
[2020-10-25 02:46] LABS: BILIRUBIN,URINE NEGATIVE (NEGATIVE); GLUCOSE, URINE (UA) NEGATIVE (NEGATIVE); KETONES,URINE (UA) NEGATIVE (NEGATIVE); LEUKOCYTE ESTERASE, URINE NEGATIVE (NEGATIVE); NITRITE,URINE NEGATIVE (NEGATIVE); OCCULT BLOOD,URINE MODERATE (NEGATIVE); PH,URINE 5.5 PH (5.0-7.5); PROTEIN,URINE TRACE mg/dL (NEGATIVE); UROBILINOGEN,URINE 0.2 (NORMAL) E.U./dL (NORMAL)
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
[2020-10-25] MEDS ORDERED: HYDROmorphone 1 MG/ML CARPUJECT IVP STA ×2 (03:02→03:52)
[2020-10-25 03:04] LABS: CLARITY,URINE CLEAR (CLEAR)
[2020-10-25 03:05] LABS: AMPHETAMINE SCREEN,URINE POSITIVE (NEGATIVE); BACTERIA,URINE None Seen /HPF (None Seen); BARBITURATE SCREEN,UR NEGATIVE (NEGATIVE); BENZODIAZEPINES SCREEN, URINE NEGATIVE (NEGATIVE); COCAINE SCREEN URINE NEGATIVE (NEGATIVE); METHADONE SCREEN, URINE NEGATIVE (NEGATIVE); METHAMPHETAMINES SCREEN, URINE NEGATIVE (NEGATIVE); OPIATE SCREEN, URINE POSITIVE (NEGATIVE); OXYCODONE SCREEN, URINE NEGATIVE (NEGATIVE); PROPOXYPHENE SCREEN, URINE NEGATIVE (NEGATIVE); RBC,URINE 0-5 /HPF (0-5); SQUAMOUS EPITHELIAL CELL,UR FEW Squamous (<= Few); THC CANNABINOID SCREEN, URINE POSITIVE (NEGATIVE); TRICYCLIC ANTIDEPRESSANT,URINE NEGATIVE (NEGATIVE); WBC,URINE 0-3 /HPF (0-3)
[2020-10-25 03:37] LABS: B. PARAPERTUSSIS- RESP PCR PAN NOT DETECTED; B. PERTUSSIS- RESP PCR PANEL NOT DETECTED; C. PNEUMONIAE- RESP PCR PANEL NOT DETECTED; CORONAVIRUS 229E-RESP PCR NOT DETECTED; CORONAVIRUS HKU1-RESP PCR NOT DETECTED; CORONAVIRUS NL63-RESP PCR NOT DETECTED; CORONAVIRUS OC43-RESP PCR NOT DETECTED; HUMAN METAPNEUMOVIRUS NOT DETECTED; INFLUENZA A- RESP PCR PANEL NOT DETECTED; INFLUENZA B - RESP PCR PANEL NOT DETECTED; M. PNEUMONIAE- RESP PCR PANEL NOT DETECTED; PARAINFLUENZA VIRUS 1 NOT DETECTED; PARAINFLUENZA VIRUS 2 NOT DETECTED; PARAINFLUENZA VIRUS 3 NOT DETECTED; PARAINFLUENZA VIRUS 4 NOT DETECTED; RHINOVIRUS/ENTEROVIRUS DETECTED; RSV- RESP PCR PANEL NOT DETECTED; SARS-CoV-2 -RESP PCR PANEL NOT DETECTED
[2020-10-25] MEDS ORDERED: SODIUM CHLORIDE 0.9% 1,000 ML IV ONE (04:13)
[2020-10-25 04:28] VITALS: BP 126/70
--- NOTE | 2020-10-25 08:04 | CT Report ---
PROCEDURE: HEAD WO INDICATIONS: Head trauma, mod-severe TECHNIQUE: Noncontrast 4.5 mm thick angled axial sections acquired from the foramen magnum to the vertex. For r adiation dose reduction, the following was used: automated exposure control, adjustment of mA and/or kV according to patient size. COMPARISON: None. FINDINGS: Image quality: Excellent. CSF spaces: Basal cisterns are patent. No extra-axial fluid collections. Ventricles are normal in size and shape. Brain: No midline shift. No intracranial masses or hemorrhage. Garcia-white matter interface is norm al. Skull and face: Calvarium and visualized facial bones are intact, without suspicious lesions. Sinuses: Bilateral maxillary sinus mucosal thickening. Subtotal opacification of the bilateral anteri or ethmoids and patchy posterior ethmoid opacification. Mild sphenoid sinus mucosal thickening. IMPRESSION: 1. No evidence acute stroke, hemorrhage, or mass. No evidence of significant intracranial sequelae of acute trauma. 2. Extensive chronic sinus disease. A preliminary report with the above findings was provided at the time of the study by [facility]. Reviewed by: Isaak Phipps MD on 10/25/2020 7:02 AM WILIAN Approved by: Isaak Phipps MD on 10/25/2020 7:02 AM WILIAN Station ID: [id number]
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
--- NOTE | 2020-10-25 08:46 | XRAY Report ---
PROCEDURE: Tib/Fib RT INDICATIONS: open fracture TECHNIQUE: 2 views of the tibia and fibula were acquired. COMPARISON: None FINDINGS: Bones: Comminuted, displaced mid shaft tibia fracture. Comminuted, displaced fibular shaft fracture w ith mild overriding. Soft tissues: No suspicious soft tissue calcifications or masses. Soft tissue laceration IMPRESSION: Comminuted, displaced shaft fractures of the tibia and fibula. A preliminary report with the above findings was provided at the time of the study by [facility]. Reviewed by: Isaak Phipps MD on 10/25/2020 7:45 AM WILIAN Approved by: Isaak Phipps MD on 10/25/2020 7:45 AM WILIAN Station ID: [id number]
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
== END 2020-10-25 04:48 | disposition short-term general hospital (02) ==
LOC: EDUNIT# → ED 01:25
DX: S82.251B Displaced comminuted fracture of shaft of right tibia, initial encounter for open fracture type I or II (principal); S82.451B Displaced comminuted fracture of shaft of right fibula, initial encounter for open fracture type I or II; V47.6XXA Car passenger injured in collision with fixed or stationary object in traffic accident, initial encounter; W22.12XA Striking against or struck by front passenger side automobile airbag, initial encounter; Y92.410 Unspecified street and highway as the place of occurrence of the external cause; Z23 Encounter for immunization; R91.8 Other nonspecific abnormal finding of lung field; Z72.0 Tobacco use; Z20.822 Contact with and (suspected) exposure to COVID-19
CPT/HCPCS: 0202U; 36415; 70450; 71045; 71260; 72125; 73552; 73590; 73610; 74177; 80053; 80306; 80320; 81001; 83690; 85025; 85610; 85730; 86850; 86900; 86901; 90471; 90715; 96361; 96365; 96375; 96376; 99285; J1170; Q9967; 81003; 87086

== ENCOUNTER 2020-10-25 04:52 | Outpatient (CLI) | payer MEDICAID | END 2020-10-25 04:53 | disposition short-term general hospital (02) | LOC: EMS 04:52 | PROVIDERS: ATTEND Emergency Medicine | DX: S82.201B Unspecified fracture of shaft of right tibia, initial encounter for open fracture type I or II (principal); S82.401B Unspecified fracture of shaft of right fibula, initial encounter for open fracture type I or II; V49.69XA Unspecified car occupant injured in collision with other motor vehicles in traffic accident, initial encounter; Y93.89 Activity, other specified; Y92.410 Unspecified street and highway as the place of occurrence of the external cause | CPT/HCPCS: A0425; A0426 ==

== ENCOUNTER 2020-10-29 11:54 | Emergency (ER) | payer MEDICAID ==
[2020-10-29 12:14] VITALS: BP 142/81
[2020-10-29] MEDS ORDERED: LORazepam 2 MG/ML VIAL IVP STA (14:15)
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
[2020-10-29] MEDS ORDERED: IOVERSOL 320 100 ML VIAL IVP ONE (14:21)
[2020-10-29 14:22] LABS: BASOPHILS % (AUTO) 0.7 %; EOSINOPHILS # (AUTO) 0.3 10^3/uL (0.0-0.7); EOSINOPHILS % (AUTO) 6.9 %; HCT - HEMATOCRIT 29.3 % (42.0-52.0); HGB - HEMOGLOBIN 9.7 g/dL (14.0-18.0); LYMPHOCYTES # (AUTO) 1.2 10^3/uL (1.5-3.5); LYMPHOCYTES % (AUTO) 30.3 %; MEAN CORPUSCULAR HEMOGLOBIN 28.4 pg (27.0-31.0); MEAN CORPUSCULAR HGB CONC 33.1 g/dL (32.0-36.0); MEAN CORPUSCULAR VOLUME 85.7 fL (80.0-94.0); MEAN PLATELET VOLUME 9.8 fL (7.4-11.4); MONOCYTES # (AUTO) 0.4 10^3/uL (0.0-1.0); MONOCYTES % (AUTO) 10.8 %; NEUTROPHILS # (AUTO) 2.1 10^3/uL (1.5-6.6); NEUTROPHILS % (AUTO) 51.1 %; PLT - PLATELET COUNT 185 10^3/uL (130-450); RED BLOOD COUNT 3.42 10^6/uL (4.70-6.10); RED CELL DISTRIBUTION WIDTH 13.4 % (12.0-15.0); WHITE BLOOD COUNT 4.1 x10^3/uL (4.8-10.8)
--- NOTE | 2020-10-29 14:25 | XRAY Report ---
PROCEDURE: Chest 1 View X-Ray INDICATIONS: Chest Pain TECHNIQUE: One view of the chest was acquired. COMPARISON: 10/25/2020 FINDINGS: Surgical changes and devices: None. Lungs and pleura: No pleural effusions or pneumothorax. Lungs are clear. Mediastinum: Mediastinal contours appear normal. Heart size is normal. Bones and chest wall: No suspicious bony lesions. Overlying soft tissues appear unremarkable. IMPRESSION: No acute cardiopulmonary pathology. Reviewed by: Han Leong MD on 10/29/2020 2:24 PM PDT Approved by: Han Leong MD on 10/29/2020 2:24 PM PDT Station ID: [id number]
[2020-10-29 14:37] LABS: ALBUMIN 3.7 g/dL (3.2-5.5); ALBUMIN/GLOBULIN RATIO 1.2 (1.0-2.2); CALCIUM 9.1 mg/dL (8.5-10.3); CREATININE 0.6 mg/dL (0.6-1.2); POTASSIUM 3.4 mmol/L (3.5-5.0); TOTAL PROTEIN 6.9 g/dL (6.7-8.2)
== END 2020-10-29 14:55 | disposition left against medical advice (07) ==
LOC: ED 11:54
DX: S82.201A Unspecified fracture of shaft of right tibia, initial encounter for closed fracture (principal); V49.9XXA Car occupant (driver) (passenger) injured in unspecified traffic accident, initial encounter; R07.1 Chest pain on breathing; F17.200 Nicotine dependence, unspecified, uncomplicated
CPT/HCPCS: 36415; 80053; 83690; 84484; 85025; 93005; 99284

== ENCOUNTER 2020-10-30 11:53 | Emergency (ER) | payer MEDICAID ==
[2020-10-30 12:30] LABS: BASOPHILS % (AUTO) 0.9 %; EOSINOPHILS # (AUTO) 0.3 10^3/uL (0.0-0.7); HCT - HEMATOCRIT 31.5 % (42.0-52.0); HGB - HEMOGLOBIN 10.7 g/dL (14.0-18.0); LYMPHOCYTES # (AUTO) 1.1 10^3/uL (1.5-3.5); LYMPHOCYTES % (AUTO) 24.2 %; MEAN CORPUSCULAR HEMOGLOBIN 28.7 pg (27.0-31.0); MEAN CORPUSCULAR VOLUME 84.5 fL (80.0-94.0); MEAN PLATELET VOLUME 9.2 fL (7.4-11.4); MONOCYTES # (AUTO) 0.4 10^3/uL (0.0-1.0); MONOCYTES % (AUTO) 8.4 %; NEUTROPHILS # (AUTO) 2.7 10^3/uL (1.5-6.6); NEUTROPHILS % (AUTO) 59.1 %; PLT - PLATELET COUNT 213 10^3/uL (130-450); RED BLOOD COUNT 3.73 10^6/uL (4.70-6.10); RED CELL DISTRIBUTION WIDTH 13.2 % (12.0-15.0); WHITE BLOOD COUNT 4.6 x10^3/uL (4.8-10.8)
[2020-10-30 12:48] LABS: ALBUMIN 3.9 g/dL (3.2-5.5); ALBUMIN/GLOBULIN RATIO 1.1 (1.0-2.2); BILIRUBIN,TOTAL 1.2 mg/dL (0.2-1.0); CALCIUM 9.5 mg/dL (8.5-10.3); CREATININE 0.7 mg/dL (0.6-1.2); POTASSIUM 3.8 mmol/L (3.5-5.0); TOTAL PROTEIN 7.6 g/dL (6.7-8.2)
[2020-10-30] MEDS ORDERED: IOVERSOL 320 100 ML VIAL IVP ONE ×2 (13:53→15:24)
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
[2020-10-30 15:31] VITALS: BP 128/72
== END 2020-10-30 15:30 | disposition home or self-care (01) ==
LOC: ED 11:53
DX: R07.1 Chest pain on breathing (principal); F17.200 Nicotine dependence, unspecified, uncomplicated
CPT/HCPCS: 36415; 71275; 80053; 83690; 84484; 85025; 93005; 99284; Q9967

== ENCOUNTER 2020-12-03 12:33 | Outpatient (CLI) | payer MEDICAID ==
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
== END 2020-12-03 12:34 | disposition home or self-care (01) ==
LOC: DI 12:33
PROVIDERS: ATTEND Orthopaedic Surgery Orthopaedic Trauma
DX: Z98.890 Other specified postprocedural states (principal); Z87.81 Personal history of (healed) traumatic fracture

== ENCOUNTER 2021-01-18 15:37 | Emergency (ER) | payer MEDICAID ==
[2021-01-18] MEDS ORDERED: HYDROcod/ACETAM 5/325 MG TABLET PO STA (17:08)
[2021-01-18] MEDS ORDERED: LIDOCAINE 1% 2 ML VIAL MC ONE (17:08)
[2021-01-18] MEDS ORDERED: SULFAMETH/TRIMETH DS 800/160 MG TABLET PO STA (17:08)
[2021-01-18] MEDS ORDERED: cefTRIAXone 1 GM VIAL IM STA (17:08)
--- NOTE | 2021-01-18 17:12 | ED Physician Documentation ---
History of Present Illness - Stated complaint Stated Complaint: MALE W/PX, BODY SPOTS - Chief complaint Chief Complaint: General - History obtained from History obtained from: Patient - History of Present Illness Timing: How many days ago (several) Pain level max: 7 Pain level now: 5 - Additonal information Additional information: Patient is a 25-year-old male who presents to the emergency department stating he has noticed swelling and drainage from the right buttock over the past several days. Worse with palpation and sitting. Better with drainage. No fevers. No chills. Also has noticed a small lump in the right scrotal area and the left axilla. Has had MRSA in the past and had to have abscesses drained off his face. Review of Systems Constitutional: denies: Fever, Chills GI: denies: Vomiting, Diarrhea Skin: denies: Rash PD PAST MEDICAL HISTORY - Past Medical History Past Medical History: Yes Cardiovascular: None Respiratory: None Neuro: None, Seizure disorder Endocrine/Autoimmune: None GI: None, Other : None HEENT: None Psych: Anxiety, Panic attacks, Post traumatic stress disorder Musculoskeletal: None Derm: Eczema, Psoriasis, Other - Past Surgical History Past Surgical History: No HEENT: Tonsil/Adenoidectomy, Other - Present Medications Home Medications: Ambulatory Orders Medication Instructions Recorded Confirmed Acetaminophen [Acetaminophen Extra 1 tab ORAL DAILY PRN 01/18/21 01/18/21 Strength] HYDROcod/ACETAM 5/325 [[place] 5/325] 1 - 2 ea PO Q6H PRN #14 tablet 01/18/21 Sulfamethox/Trimeth 800/160 1 each PO BID #20 tablet 01/18/21 [Bactrim Ds 800/160] cephALEXin [Keflex] 500 mg PO Q6H #28 cap 01/18/21 - Allergies Allergies/Adverse Reactions: Allergies Allergy/AdvReac Type Severity Reaction Status Date / Time No Known Drug Allergies Allergy Verified 01/18/21 15:44 - Social History Does the pt smoke?: No Smoking Status: Never smoker Does the pt drink ETOH?: Yes Does the pt have substance abuse?: No - Immunizations Immunizations are current?: Yes - POLST Patient has POLST: No PD ED PE NORMAL - Vitals Vital signs reviewed: Yes - General General: Alert and oriented X 3, No acute distress - HEENT HEENT: Moist mucous membranes - Neck Neck: Supple, no meningeal sign - Cardiac Cardiac: RRR - Respiratory Respiratory: No respiratory distress, Clear bilaterally - Abdomen Abdomen: Soft, Non tender, Non distended - Derm Derm: Warm and dry - Extremities Extremities: Other (0.2 cm soft tissue swelling to the left axilla. No skin changes. 0.2 cm swelling to the right scrotal area, no skin changes. Normal t esticular exam. 3 x 3 cm area of erythema and induration with a small amount of purulent drainage to the right buttock.) - Neuro Neuro: Alert and oriented X 3 Results - Vitals Vitals: Vital Signs - 24 hr 01/18/21 01/18/21 15:44 16:35 Temperature 36.5 C 37.1 C Heart Rate 100 89 Respiratory 16 14 Rate Blood Pressure 150/78 H 134/71 H O2 Saturation 100 100 Oxygen O2 Source Room air PD MEDICAL DECISION MAKING - ED course Complexity details: considered differential, d/w patient ED course: Patient with a spontaneously draining abscess. Also has some right groin lymphadenopathy, possible small early abscess to the left axilla and right scrotal wall. Will place on antibiotics for home. Will prescribe pain medication as well. No indication for incision and drainage at this time. I am prescribing a short course of short-acting opioid pain medication for this patient. I have reviewed the patients WAISTLINE JOINER LOCKSTITCH and no concerning findings were noted. I have discussed that the opioids are for short term therapy only, and will not be refilled from the ED. patient counseled regarding signs and symptoms for which I believe and urgent re-evaluation would be necessary. Patient with good understanding of and agreement to plan and is comfortable going home at this time This document was made in part using voice recognition software. While efforts are made to proofread this document, sound alike and grammatical errors may occur. Departure - Departure Disposition: 01 Home, Self Care Clinical Impression: Abscess Condition: Good Instructions: ED Abscess IandD Follow-Up: ALYSSA HI PA-C [Primary Care Provider] - Within 3 Days Prescriptions: Sulfamethox/Trimeth 800/160 [Bactrim Ds 800/160] 1 each PO BID #20 tablet cephALEXin [Keflex] 500 mg PO Q6H #28 cap HYDROcod/ACETAM 5/325 [[place] 5/325] 1 - 2 ea PO Q6H PRN #14 tablet PRN Reason: Pain Comments: Take all antibiotics until gone. Return if you worsen. Your prescriptions were sent to [facility] in [place]. I am prescribing a short course of narcotic pain medication for you. These are potentially dangerous and addictive medications that should be used carefully. These medications may constipate you. Take an rujn-uuu-sjxfiag stool softener (docusate) twice daily with plenty of water while taking these medications. If you go 24 hours without a bowel movement, take [id number] miralax, per package instructions. Do not drink or drive while taking these medications. If you received narcotic or sedating medications while in the emergency department, do not drive for 24 hours. Store this medication in a safe, secure place and out of reach of children. It is a violation of federal law to give or sell this medication to another person or to use in a manner other than prescribed. The ED will not refill narcotic prescriptions, including prescriptions lost or stolen. To dispose of unwanted medications: 1. [facility] at [address] in [place] has a medication drop box. They accept prescription medications (in pill form) Tuesday through Tuesday 9:00 a.m. to 5:00 p.m. 2. The [facility] Police Department accepts prescription medications (in pill form only) for disposal year round. Call for more information. 3. Contact the [facility] for the next [facility] sponsored prescription drug collection event. , [phone], or [phone];
[2021-01-18 18:05] VITALS: BP 130/60
== END 2021-01-18 18:04 | disposition home or self-care (01) ==
LOC: ED 15:37
DX: L02.31 Cutaneous abscess of buttock (principal); R59.0 Localized enlarged lymph nodes
CPT/HCPCS: 96372; 99283; A9270

== ENCOUNTER 2021-01-26 12:16 | Emergency (ER) | payer MEDICAID ==
[2021-01-26 12:28] VITALS: BP 137/70
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
== END 2021-01-26 13:38 | disposition home or self-care (01) ==
LOC: ED 12:16
DX: T78.40XA Allergy, unspecified, initial encounter (principal); Z20.822 Contact with and (suspected) exposure to COVID-19
CPT/HCPCS: 99282; 99283

== ENCOUNTER 2021-03-16 11:44 | Emergency (ER) | payer MEDICAID ==
[2021-03-16 11:56] VITALS: BP 148/87
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
[2021-03-16 13:21] LABS: BASOPHILS % (AUTO) 0.4 %; EOSINOPHILS # (AUTO) 0.3 10^3/uL (0.0-0.7); EOSINOPHILS % (AUTO) 2.7 %; HCT - HEMATOCRIT 49.1 % (42.0-52.0); HGB - HEMOGLOBIN 16.2 g/dL (14.0-18.0); LYMPHOCYTES # (AUTO) 1.3 10^3/uL (1.5-3.5); LYMPHOCYTES % (AUTO) 12.2 %; MEAN CORPUSCULAR HEMOGLOBIN 27.8 pg (27.0-31.0); MEAN CORPUSCULAR VOLUME 84.2 fL (80.0-94.0); MEAN PLATELET VOLUME 10.5 fL (7.4-11.4); MONOCYTES # (AUTO) 0.7 10^3/uL (0.0-1.0); MONOCYTES % (AUTO) 5.9 %; NEUTROPHILS # (AUTO) 8.6 10^3/uL (1.5-6.6); NEUTROPHILS % (AUTO) 78.2 %; PLT - PLATELET COUNT 172 10^3/uL (130-450); RED BLOOD COUNT 5.83 10^6/uL (4.70-6.10); RED CELL DISTRIBUTION WIDTH 14.8 % (12.0-15.0)
[2021-03-16 13:37] LABS: ALBUMIN 5.2 g/dL (3.2-5.5); ALBUMIN/GLOBULIN RATIO 1.6 (1.0-2.2); BILIRUBIN,TOTAL 0.7 mg/dL (0.2-1.0); CALCIUM 10.1 mg/dL (8.5-10.3); CREATININE 0.7 mg/dL (0.6-1.2); POTASSIUM 3.9 mmol/L (3.5-5.0); TOTAL PROTEIN 8.4 g/dL (6.7-8.2)
[2021-03-19 15:06] LABS: HIV AG/AB 4TH GEN NON-REACTIVE (NON-REACTIVE)
== END 2021-03-16 13:35 | disposition home or self-care (01) ==
LOC: ED 11:44
DX: L02.211 Cutaneous abscess of abdominal wall (principal); Z86.14 Personal history of Methicillin resistant Staphylococcus aureus infection; Z83.3 Family history of diabetes mellitus
CPT/HCPCS: 36415; 80053; 83690; 85025; 87389; 99284

== ENCOUNTER 2021-07-02 08:00 | Outpatient (CLI) | payer MEDICAID ==
--- NOTE | 2021-07-02 19:15 | XRAY Report ---
PROCEDURE: Chest 2 View X-Ray INDICATIONS: HEMOPTYSIS TECHNIQUE: 2 view(s) of the chest. COMPARISON: 10/29/2020. FINDINGS: Surgical changes and devices: None. Lungs and pleura: No pleural effusions or pneumothorax. Lungs are clear. Mediastinum: Mediastinal contours are normal. Heart size is normal. Bones and chest wall: No suspicious bony abnormalities. Soft tissues appear unremarkable. IMPRESSION: No evidence acute pulmonary process. Reviewed by: Isaak Phipps MD on 07/02/2021 7:13 PM PST Approved by: Isaak Phipps MD on 07/02/2021 7:13 PM PST Station ID: [id number]
== END 2021-07-02 23:59 | disposition home or self-care (01) ==
LOC: DI.S 08:00
PROVIDERS: ATTEND Emergency Medicine
DX: R04.2 Hemoptysis (principal)

== ENCOUNTER 2021-07-06 19:51 | Emergency (ER) | payer MEDICAID ==
[2021-07-06] MEDS ORDERED: SULFAMETH/TRIMETH DS 800/160 MG TABLET PO STA (19:55)
[2021-07-06] MEDS ORDERED: MUPIROCIN 2% OINT 1 GM TOP STA (19:55)
--- NOTE | 2021-07-06 19:58 | ED Physician Documentation ---
PD HPI WOUND RECHECK - Stated complaint Stated Complaint: RASH - Histroy obtained from History obtained from: Patient - Additional information Additional information: He brought his daughter in for evaluation of a rash that looked like an early staphylococcal infection and then he checked in noting that he has a lesion on his face. He has a history of MRSA. The lesions been there for a few days and is mildly painful. He tried squeezing it but nothing came out. He has a history of recurrent MRSA. No fevers. Review of Systems Constitutional: reports: Reviewed and negative Eyes: reports: Reviewed and negative Cardiac: reports: Reviewed and negative Respiratory: reports: Reviewed and negative PD PAST MEDICAL HISTORY - Past Medical History Cardiovascular: None Respiratory: None Neuro: None, Seizure disorder Endocrine/Autoimmune: None GI: None, Other : None HEENT: None Psych: Anxiety, Panic attacks, Post traumatic stress disorder Musculoskeletal: None Derm: Eczema, Psoriasis, Other - Past Surgical History Past Surgical History: No HEENT: Tonsil/Adenoidectomy, Other - Present Medications Home Medications: Ambulatory Orders Medication Instructions Recorded Confirmed Acetaminophen [Acetaminophen Extra 1 tab ORAL DAILY PRN 01/18/21 01/26/21 Strength] HYDROcod/ACETAM 5/325 [[place]ic[place] 5/325] 1 - 2 ea PO Q6H PRN #14 tablet 01/18/21 01/26/21 Sulfamethox/Trimeth 800/160 1 each PO BID #20 tablet 01/18/21 01/26/21 [Bactrim Ds 800/160] cephALEXin [Keflex] 500 mg PO Q6H #28 cap 01/18/21 01/26/21 Chlorhexidine Gluconate [Hibiclens] 1 applic TP DAILY 5 Days #1 bottle 03/16/21 HYDROcod/ACETAM 5/325 [Spic[place] 5/325] 1 - 2 ea PO Q6H PRN #14 tablet 03/16/21 Mupirocin 2% Oint [Bactroban 2% 1 applic TOP BID 5 Days #50 gm 03/16/21 Oint] Sulfamethox/Trimeth 800/160 1 each PO BID #20 tablet 03/16/21 [Bactrim Ds 800/160] cephALEXin [Keflex] 500 mg PO Q6H #40 cap 03/16/21 Mupirocin 2% Oint [Bactroban 2% 1 applic TOP BID #50 gm 07/06/21 Oint] Sulfamethox/Trimeth 800/160 1 each PO BID #14 tablet 07/06/21 [Bactrim Ds 800/160] - Allergies Allergies/Adverse Reactions: Allergies Allergy/AdvReac Type Severity Reaction Status Date / Time No Known Drug Allergies Allergy Verified 07/06/21 19:56 - Social History Does the pt smoke?: No Smoking Status: Never smoker Does the pt drink ETOH?: Yes Does the pt have substance abuse?: No - Immunizations Immunizations are current?: Yes - POLST Patient has POLST: No PD ED PE NORMAL - Vitals Vital signs reviewed: Yes - General General: Alert and oriented X 3, No acute distress - HEENT HEENT: Other (There is a pustule with about 2 cm of surrounding cellulitis in the right side of the forehead. It is not fluctuant and does not express an ything.) - Neuro Neuro: Alert and oriented X 3, Normal speech Results - Vitals Vitals: Oxygen O2 Source Room air Departure - Departure Disposition: 01 Home, Self Care Clinical Impression: Facial cellulitis Condition: Good Record reviewed to determine appropriate education?: Yes Instructions: ED Cellulitis Facial Prescriptions: Sulfamethox/Trimeth 800/160 [Bactrim Ds 800/160] 1 each PO BID #14 tablet Mupirocin 2% Oint [Bactroban 2% Oint] 1 applic TOP BID #50 gm Comments: I sent your prescriptions electronically to [facility] in [place]. As discussed this looks like an early staphylococcal outbreak on your skin. Return if worsens or comes to more of the head for consideration for incision and drainage.
[2021-07-06 19:59] VITALS: BP 121/82
== END 2021-07-06 20:06 | disposition home or self-care (01) ==
LOC: ED 19:51
DX: L03.211 Cellulitis of face (principal)
CPT/HCPCS: 99282; 99283; A9270

== ENCOUNTER 2021-09-17 08:00 | Outpatient (CLI) | payer MEDICAID | END 2021-09-18 22:47 | disposition home or self-care (01) | LOC: LAB.S 08:00 | PROVIDERS: ATTEND Physician Assistant Medical | DX: R07.0 Pain in throat (principal); Z20.822 Contact with and (suspected) exposure to COVID-19 | CPT/HCPCS: 87070 ==

== ENCOUNTER 2022-04-20 08:00 | Outpatient (CLI) | payer MEDICAID ==
[2022-04-20 14:39] LABS: MUDS CUTOFF CONCENTRATIONS CUTOFF CONC BELOW:
[2022-04-20 15:04] LABS: AMPHETAMINE SCREEN,URINE NEGATIVE (NEGATIVE); BARBITURATE SCREEN,UR NEGATIVE (NEGATIVE); BENZODIAZEPINES SCREEN, URINE NEGATIVE (NEGATIVE); COCAINE SCREEN URINE NEGATIVE (NEGATIVE); METHADONE SCREEN, URINE NEGATIVE (NEGATIVE); METHAMPHETAMINES SCREEN, URINE NEGATIVE (NEGATIVE); OPIATE SCREEN, URINE NEGATIVE (NEGATIVE); OXYCODONE SCREEN, URINE NEGATIVE (NEGATIVE); PROPOXYPHENE SCREEN, URINE NEGATIVE (NEGATIVE); THC CANNABINOID SCREEN, URINE POSITIVE (NEGATIVE); TRICYCLIC ANTIDEPRESSANT,URINE NEGATIVE (NEGATIVE)
== END 2022-04-20 23:59 | disposition home or self-care (01) ==
LOC: LAB.S 08:00
PROVIDERS: ATTEND Registered Nurse
DX: F90.2 Attention-deficit hyperactivity disorder, combined type (principal); F41.1 Generalized anxiety disorder; Z79.899 Other long term (current) drug therapy
CPT/HCPCS: 80306

== ENCOUNTER 2022-04-26 11:08 | Outpatient (CLI) | payer MEDICAID ==
--- NOTE | 2022-04-26 14:15 | CT Report ---
PROCEDURE: LOWER EXTREMITY WO - RT INDICATIONS: FX RIGHT TIBIA TECHNIQUE: Noncontrast 3-mm axial sections acquired from the distal tibial shaft to the talar dome, with coronal and sagittal reformats. For radiation dose reduction, the following was used: automated exposure c ontrol, adjustment of mA and/or kV according to patient size. COMPARISON: Right tibia/fibular radiographs 11/25/2020. FINDINGS: Image quality: Excellent. Bones: Postsurgical changes are seen from fixation of a mid tibial shaft fracture with an intramedul corey nail. Proximal and distal locking screws are present. Metallic hardware is intact. Solid osseous bridging is seen across nearly the entirety of the fracture line, although a small osseous tract is seen extending from the anterior medial cortical surface to the hardware along the original fracture line. Midshaft fibular fracture appears healed with solid osseous bridging across the fracture line a nd mild residual deformity. A small amount of adjacent heterotopic ossification is noted. Soft tissues: No significant knee effusion. The articular cartilages, ligaments, and tendons are not well evaluated with standard CT. The lower leg musculature is normal in bulk. Mild subcutaneous taj a or scarring at the level of the tibial fracture. Impression: Postsurgical changes from tibial shaft fracture fixation with near complete solid osseous fusion across the fracture line. A healed fibular shaft fracture is also seen. Reviewed by: Clemente Carney MD on 04/26/2022 2:14 PM PST Approved by: Clemente Carney MD on 04/26/2022 2:14 PM PST Station ID: [id number]
== END 2022-04-26 11:09 | disposition home or self-care (01) ==
LOC: DI 11:08
DX: S82.201D Unspecified fracture of shaft of right tibia, subsequent encounter for closed fracture with routine healing (principal)

== ENCOUNTER 2022-08-31 18:45 | Outpatient (CLI) | payer MEDICAID ==
--- NOTE | 2022-09-01 08:27 | Ultrasound Report ---
PROCEDURE: Pelvic Limited or F/U INDICATIONS: Left inguinal pain TECHNIQUE: Real-time transabdominal scanning was performed of the left groin, with image documentation. COMPARISON: None. FINDINGS: Fat-containing, reducible left inguinal hernia. The neck measures 5 mm. The herniation sac measures 1 2 x 8 mm. IMPRESSION: Recurrent left inguinal hernia is suspected. Reviewed by: Dakotah Lee on 09/01/2022 8:25 AM PDT Approved by: Dakotah Lee on 09/01/2022 8:25 AM PDT Station ID: [id number]
--- NOTE | 2022-09-01 08:29 | Ultrasound Report ---
PROCEDURE: Testicle INDICATIONS: LEFT INGUINAL PAIN, SCROTUM PAIN TECHNIQUE: Real-time scanning was performed of the scrotum and testicles, with image documentation. Color and p ulse Doppler interrogation was performed of both testicles. COMPARISON: None. FINDINGS: Right: Testicle is normal in size at 4 x 1.9 x 2.5 cm, and homogenous in echotexture. Epididymis is normal in overall size and morphology. No hydrocele or varicoceles. Overlying scrotal skin is norm al in thickness. Left: Testicle is normal in size at 3.9 x 1.6 x 2.9 cm, and homogeneous in echotexture. Epididymis is normal in overall size and morphology. Epididymal head cyst measuring 7 mm, benign. Left-sided naina icocele is suspected. Overlying scrotal skin is normal in thickness. Doppler: Color and pulse Doppler demonstrate normal and symmetric arterial flow in both testicles. IMPRESSION: Suspect left-sided varicocele. Benign left epididymal head cyst measuring 7 mm. Reviewed by: Dakotah Lee on 09/01/2022 8:28 AM PDT Approved by: Dakotah Lee on 09/01/2022 8:28 AM PDT Station ID: [id number]
== END 2022-08-31 18:46 | disposition home or self-care (01) ==
LOC: DI 18:45
PROVIDERS: ATTEND Registered Nurse
DX: N50.82 Scrotal pain (principal); R10.32 Left lower quadrant pain; N50.3 Cyst of epididymis